=== PATIENT | female | born 1950 | race Caucasian/White ===

== ENCOUNTER 2017-05-22 15:13 | Emergency (ER) | payer OTHER ==
[~2017-05-22] VITALS: Ht 162.6 cm; Wt 89.8 kg
--- NOTE | 2017-05-22 15:13 | NUR ---
Patient BIBA BLS, transferred to bed 8. RN evaluating patient at bedside.
[2017-05-22 15:14] VITALS: BP 134/74
[2017-05-22] MEDS ORDERED: ONDANSETRON 4 MG/2 ML VIAL IVP ONE (15:30)
[2017-05-22] MEDS ORDERED: SYN.05 PO (15:37)
[2017-05-22] MEDS ORDERED: SIMV20TA1 PO (15:37)
--- NOTE | 2017-05-22 15:38 | NUR ---
PATIENT PRESENTS TO ED WITH PATIENT FROM [facility]. TOOK GAS X BEFORE GOING TO THE GYM TODAY. ZOFRAN 4MG IV GIVEN FIELD. PATIENT BURPING, NO VOMITING. HX: HYSTERECTOMY,CHOLECYSTECTOMY,CARPAL TUNNEL SYNDROME,HIGH CHOL,HYPOTHYROIDSM.LEVOTHYROXIN,SIMVASTATIN; DENIES DIARRHEA; SKIN IS PINK/WARM/DRY; AAOX4 WITH EVEN AND STEADY GAIT; LUNGS CLEAR BL; HR EVEN AND REGULAR; PT DENIES ANY FEVER, CP, SOB, OR COUGH AT THIS TIME; PATIENT STATES PAIN OF 0/10 AT THIS TIME; VSS; PATIENT POSITIONED FOR COMFORT; HOB ELEVATED; BEDRAILS UP X2; BED DOWN. ER MD MADE AWARE OF PT STATUS.
--- NOTE | 2017-05-22 17:31 | NUR ---
PT STATES "I'M FEELING FEELING BETTER "I WANNA GO HOME"MY SISTER HAS TROUBLE DRIVING AT NIGHT;DR HENLEY NOTIFIED;
--- NOTE | 2017-05-22 17:35 | NUR ---
DR HENLEY AT BEDSIDE
[2017-05-22 17:57] VITALS: BP 108/59
== END 2017-05-22 17:57 | disposition home or self-care (01) ==
LOC: MED 15:13
DX: R10.13 Epigastric pain (principal); R11.2 Nausea with vomiting, unspecified
CPT/HCPCS: 96374; 99284; J2405